=== PATIENT | female | born 1960 | race Native Hawaiian/Other Pacific Islander ===

== ENCOUNTER 2019-06-27 13:46 | Emergency (ER) | payer MEDICAID, OTHER ==
[~2019-06-27] VITALS: Ht 157.5 cm; Wt 59.9 kg
[2019-06-27 14:05] VITALS: BP 159/84
== END 2019-06-27 15:42 | disposition home or self-care (01) ==
LOC: ER 13:46
DX: L60.0 Ingrowing nail (principal); B37.3 Candidiasis of vulva and vagina; E11.9 Type 2 diabetes mellitus without complications; I10 Essential (primary) hypertension

== ENCOUNTER 2020-08-20 04:13 | Emergency (ER) | payer MEDICAID ==
[~2020-08-20] VITALS: Ht 157.5 cm; Wt 61.2 kg
[2020-08-20 05:01] VITALS: BP 174/77
[2020-08-20] MEDS ORDERED: HYDROcodone-ACET 5/325MG TAB PO ONE (05:15)
[2020-08-20] MEDS ORDERED: ONDANSETRON ODT 4 MG TAB PO ONE (05:15)
== END 2020-08-20 06:10 | disposition home or self-care (01) ==
LOC: ER 04:13
DX: S39.012A Strain of muscle, fascia and tendon of lower back, initial encounter (principal); M43.16 Spondylolisthesis, lumbar region; R03.0 Elevated blood-pressure reading, without diagnosis of hypertension; E11.9 Type 2 diabetes mellitus without complications; I10 Essential (primary) hypertension; X58.XXXA Exposure to other specified factors, initial encounter; Y93.89 Activity, other specified; Y92.89 Other specified places as the place of occurrence of the external cause; Y99.8 Other external cause status
CPT/HCPCS: 72100; 93005; 99283; Q0162

== ENCOUNTER 2022-06-06 17:20 | Emergency (ER) | payer MEDICAID ==
[~2022-06-06] VITALS: Ht 160 cm; Wt 66.0 kg
[2022-06-06 17:36] VITALS: BP 170/92
[2022-06-06] MEDS ORDERED: ACETAMINOPHEN 500 MG TAB PO ONE (17:45)
== END 2022-06-07 02:02 | disposition home or self-care (01) ==
LOC: ER 17:20
DX: S01.111A Laceration without foreign body of right eyelid and periocular area, initial encounter (principal); Z88.6 Allergy status to analgesic agent; W01.0XXA Fall on same level from slipping, tripping and stumbling without subsequent striking against object, initial encounter; Y93.89 Activity, other specified; Y92.89 Other specified places as the place of occurrence of the external cause; Y99.8 Other external cause status
CPT/HCPCS: 12011

== ENCOUNTER 2023-04-02 04:01 | Inpatient (IN) | payer MEDICARE, MEDICAID ==
[~2023-04-02] VITALS: Ht 160 cm; Wt 72.0 kg
[2023-04-02] MEDS ORDERED: SODIUM CHLORIDE 0.9% 1,000 ML IV ONE ×2 (05:00→07:15)
[2023-04-02 05:09] VITALS: PULSE 86; RESP 20; O2SAT 100
[2023-04-02 05:38] LABS: Alanine Aminotransferase 18 U/L (7-40); Albumin 4.6 g/dL (3.2-4.8); Alkaline Phosphatase 100 U/L (46-116); Anion Gap 8 (5-15); Aspartate Aminotransferase 12 U/L (13-40); BUN/Creatinine Ratio 12.5 (10.0-20.0); Bilirubin, Total 0.7 mg/dL (0.2-1.0); Blood Urea Nitrogen 12 mg/dL (9-23); Calcium 9.4 mg/dL (8.7-10.4); Carbon Dioxide 28 mmol/L (20-30); Chloride 100 mmol/L (98-107); Lipase 36 U/L (12-53); Sodium 136 mmol/L (136-145); Total Protein 7.4 g/dL (5.7-8.2)
[2023-04-02 05:49] LABS: Basophils # (auto) 0 10 ^3/uL (0-0.2); Basophils % (auto) 0.2 % (0.0-2.0); Eosinophils # (auto) 0.1 10 ^3/uL (0-0.8); Eosinophils % (auto) 1.5 % (0.0-7.0); Hematocrit 42.3 % (36.0-46.0); Hemoglobin 13.8 g/dL (12.2-16.2); Lymphocytes % (auto) 20.7 % (10.0-50.0); Mean Corpuscular Hemoglobin 28.2 pg (28.0-32.0); Mean Corpuscular Hgb Conc. 32.7 g/dL (32.0-36.0); Mean Corpuscular Volume 86.4 fL (80.0-100.0); Monocytes # (auto) 0 10 ^3/uL (0-1.3); Monocytes % (auto) 0.4 % (0.0-12.0); Neutrophils # (auto) 3.9 10 ^3/uL (1.6-8.6); Neutrophils % (auto) 77.2 % (37.0-80.0); Red Blood Cells 4.89 10^6/uL (4.0-5.20)
[2023-04-02 05:52] LABS: Glucose 478 mg/dL (74-106)
[2023-04-02] MEDS ORDERED: InsuLIN REG 1unit/0.01ml Soln (100units/ml) IV ONE (06:00)
[2023-04-02] MEDS ORDERED: ACETAMINOPHEN 325 MG TAB PO ONE ×2 (06:15→06:30)
[2023-04-02] MEDS ORDERED: SODIUM CHLORIDE 0.9% 1,000 ML IVB ONE (08:00)
[2023-04-02] MEDS ORDERED: IOHEXOL 300 MG/ML 100ML BOTTLE IJ ONE (08:07)
[2023-04-02 08:54] LABS: Urine Bacteria FEW /hpf (None Seen); Urine Blood Negative /uL (Negative); Urine Clarity Clear (Clear); Urine Protein, UAD Negative (Negative); Urine Specific Gravity 1.028 (1.001-1.035); Urine Urobilinogen Normal (Negative); Urine WBC 4 /hpf (0 - 5); Urine pH 6.5 (5.0-8.0)
[2023-04-02 08:56] LABS: Urine Color STRAW (Yellow)
[2023-04-02] MEDS ORDERED: NOREPINEPHRINE 8 MG/250ML KIT 250 ML IV SCH (14:30)
[2023-04-02] MEDS ORDERED: NITROGLYCERIN 0.4 MG SL TAB SL PRN (14:45)
[2023-04-02] MEDS ORDERED: TAMSULOSIN HYDROCHLORIDE 0.4 MG CAP PO ONE (14:45)
[2023-04-02] MEDS ORDERED: DEXTROSE (50%) 50ML SYRG IV PRN (14:45)
[2023-04-02] MEDS ORDERED: KETOROLAC TROMETH 30 MG/ML 1ML VIAL IV ONE (14:45)
[2023-04-02] MEDS ORDERED: PANTOPRAZOLE 40 MG/10 ML VIAL INJ IV ONE (14:45)
[2023-04-02] MEDS ORDERED: MORPHINE SULFATE INJ 2 MG/ml SYRG IV PRN (14:45)
[2023-04-02] MEDS ORDERED: cefTRIAXone 1GM/50ML D5W 50 ML IV ONE (15:00)
[2023-04-02] MEDS ORDERED: metroNIDAZOLE 500MG/100ML 100 ML IV ONE (15:00)
[2023-04-02] MEDS ORDERED: CARV12.544 PO (15:03)
[2023-04-02] MEDS ORDERED: ROSU1TAB12 PO (15:03)
[2023-04-02] MEDS ORDERED: MECL25CH20 PO (15:03)
[2023-04-02] MEDS ORDERED: METF-1145 PO (15:03)
[2023-04-02] MEDS ORDERED: CLOB0.05 TOP (15:03)
[2023-04-02] MEDS ORDERED: BENZ200C64 PO (15:03)
[2023-04-02] MEDS ORDERED: LORA-483 PO (15:03)
[2023-04-02] MEDS ORDERED: ASPI-325 PO (15:03)
[2023-04-02] MEDS: VASOPRESSIN 20 UNITS in SODIUM CHL 0.9% 99 ML IV SCH (16:00)
[2023-04-02] MEDS: SODIUM CHLORIDE 0.9% 1,000 ML IV SCH ×2 (16:46→23:09)
[2023-04-02] MEDS: metroNIDAZOLE 500MG/100ML 100 ML IV SCH ×2 (16:52→23:02)
[2023-04-02] MEDS: ACCU-CHEK COMFORT CURVE STRIP VI SCH ×2 (17:08→22:59)
[2023-04-02] MEDS: InsuLIN REG 1unit/0.01ml Soln (100units/ml) SC SCH ×2 (17:43→22:59)
[2023-04-02 19:04] LABS: Lactic Acid w/Reflex 3.1 mmol/L (0.4-2.0)
[2023-04-02 19:15] VITALS: PULSE 93; RESP 20; O2SAT 97
[2023-04-02] MEDS: TAMSULOSIN HYDROCHLORIDE 0.4 MG CAP PO SCH (20:04)
[2023-04-02] MEDS: ATORVASTATIN 20 MG TAB PO SCH (22:59)
[2023-04-03] MEDS: ONDANSETRON HCL 4 MG/2 ML VIAL IV PRN (00:34)
[2023-04-03 01:24] LABS: Lactic Acid w/Reflex 5.6 mmol/L (0.4-2.0)
[2023-04-03] MEDS: VASOPRESSIN 20 UNITS in SODIUM CHL 0.9% 99 ML IV SCH (02:31)
[2023-04-03 06:22] LABS: Alanine Aminotransferase 22 U/L (7-40); Alkaline Phosphatase 72 U/L (46-116); Anion Gap 12 (5-15); BUN/Creatinine Ratio 10.3 (10.0-20.0); Blood Urea Nitrogen 9 mg/dL (9-23); Calcium 7.2 mg/dL (8.5-10.1); Carbon Dioxide 16 mmol/L (20-30); Glucose 246 mg/dL (74-106); Potassium 3.9 mmol/L (3.5-5.1); Sodium 141 mmol/L (136-145)
[2023-04-03 06:23] LABS: Albumin 2.8 g/dL (3.2-4.8); Aspartate Aminotransferase 30 U/L (13-40)
[2023-04-03 06:24] LABS: Bilirubin, Total 0.5 mg/dL (0.2-1.0); Total Protein 4.8 g/dL (5.7-8.2)
[2023-04-03 06:26] LABS: Chloride 113 mmol/L (98-107)
[2023-04-03] MEDS: ACCU-CHEK COMFORT CURVE STRIP VI SCH ×4 (06:26→21:21)
[2023-04-03] MEDS: PIPERACILLIN-TAZOB 3.375GM 100 ML IV SCH ×3 (06:26→23:08)
[2023-04-03] MEDS: SODIUM CHLORIDE 0.9% 1,000 ML IV SCH ×2 (06:27→15:54)
[2023-04-03] MEDS: InsuLIN REG 1unit/0.01ml Soln (100units/ml) SC SCH ×4 (06:30→21:30)
[2023-04-03] MEDS: metroNIDAZOLE 500MG/100ML 100 ML IV SCH ×3 (06:44→21:32)
[2023-04-03 07:04] LABS: Lactic Acid w/Reflex 3.2 mmol/L (0.4-2.0)
[2023-04-03 07:59] LABS: Basophils # (auto) 0 10 ^3/uL (0-0.2); Basophils % (auto) 0.2 % (0.0-2.0); Eosinophils # (auto) 0 10 ^3/uL (0-0.8); Eosinophils % (auto) 0.3 % (0.0-7.0); Hematocrit 36.2 % (36.0-46.0); Hemoglobin 11.1 g/dL (12.2-16.2); Lymphocytes # (auto) 0.7 10 ^3/uL (0.4-5.4); Lymphocytes % (auto) 5.6 % (10.0-50.0); Mean Corpuscular Hemoglobin 27.8 pg (28.0-32.0); Mean Corpuscular Hgb Conc. 30.6 g/dL (32.0-36.0); Mean Corpuscular Volume 90.8 fL (80.0-100.0); Monocytes # (auto) 0.7 10 ^3/uL (0-1.3); Neutrophils # (auto) 11.5 10 ^3/uL (1.6-8.6); Neutrophils % (auto) 88.9 % (37.0-80.0); Nucleated Red Blood Cells % 0.1 %; Red Blood Cells 3.99 10^6/uL (4.0-5.20); Red Cell Distribution Width 13.8 % (11.8-14.3)
[2023-04-03] MEDS ORDERED: cefTRIAXone 1GM/50ML D5W 50 ML IV SCH (09:00)
[2023-04-03] MEDS: ACETAMINOPHEN 325 MG TAB PO PRN ×2 (09:15→21:31)
[2023-04-03] MEDS ORDERED: ENOXAPARIN SOD 40 MG/0.4 ML SYRINGE SC SCH (10:00)
[2023-04-03] MEDS: PANTOPRAZOLE 40 MG/10 ML VIAL INJ IV SCH (11:02)
[2023-04-03] MEDS: ASPirin-EC 81 mg tab PO SCH (11:02)
[2023-04-03 11:44] VITALS: PULSE 92; RESP 20; O2SAT 96
[2023-04-03 12:48] VITALS: PULSE 92; RESP 20; O2SAT 96
[2023-04-03 13:41] LABS: Lactic Acid w/Reflex 2.2 mmol/L (0.4-2.0)
[2023-04-03 13:52] VITALS: BP 114/65; PULSE 104; RESP 18; TEMP 97.2; O2SAT 100
[2023-04-03] MEDS: TAMSULOSIN HYDROCHLORIDE 0.4 MG CAP PO SCH (18:01)
[2023-04-03 18:57] LABS: Lactic Acid w/Reflex 2.4 mmol/L (0.4-2.0)
[2023-04-03 20:00] VITALS: PULSE 102; O2SAT 94
[2023-04-03] MEDS: ATORVASTATIN 20 MG TAB PO SCH (21:30)
[2023-04-03 22:32] VITALS: TEMP 98.9
[2023-04-04] VITALS (8 sets, daily range): BP systolic 105–133; BP diastolic 58–74; PULSE 94–101; RESP 16–22; TEMP 98.2–99; O2SAT 90–95
[2023-04-04] MEDS: SODIUM CHLORIDE 0.9% 1,000 ML IV SCH ×3 (00:05→11:15)
[2023-04-04] MEDS: metroNIDAZOLE 500MG/100ML 100 ML IV SCH ×3 (05:54→21:28)
[2023-04-04] MEDS: ACCU-CHEK COMFORT CURVE STRIP VI SCH ×4 (06:50→21:27)
[2023-04-04] MEDS: PIPERACILLIN-TAZOB 3.375GM 100 ML IV SCH ×3 (06:51→22:46)
[2023-04-04] MEDS: InsuLIN REG 1unit/0.01ml Soln (100units/ml) SC SCH ×4 (06:58→21:36)
[2023-04-04] MEDS: ONDANSETRON HCL 4 MG/2 ML VIAL IV PRN (06:59)
[2023-04-04 07:16] LABS: Hematocrit 34.5 % (36.0-46.0); Hemoglobin 11.2 g/dL (12.2-16.2); Mean Corpuscular Hemoglobin 27.9 pg (28.0-32.0); Mean Corpuscular Hgb Conc. 32.4 g/dL (32.0-36.0); Mean Corpuscular Volume 86.1 fL (80.0-100.0); Red Cell Distribution Width 13.7 % (11.8-14.3); White Blood Cell 14.4 10^3/uL (4.4-10.8)
[2023-04-04 07:21] LABS: Basophils % (manual) 0 (0.0-2.0); Blast Cells 0; Eosinophils % (manual) 0 (0-7); Metamyelocytes % 0; Myelocytes % 0; Promyelocytes % 0; Reactive Lymphocytes 0
[2023-04-04 07:53] LABS: Band Neutrophils % (manual) 7; Lymphocytes % (manual) 6 (10.0-50.0); Monocytes % (manual) 8 (0-12); Platelet Estimate Decreased
[2023-04-04] MEDS: ASPirin-EC 81 mg tab PO SCH (10:13)
[2023-04-04] MEDS: PANTOPRAZOLE 40 MG/10 ML VIAL INJ IV SCH (10:13)
[2023-04-04] MEDS ORDERED: MANNITOL FTV 25% 12.5 GM/50 ML 50 ML IV ONE (11:00)
[2023-04-04] MEDS: TAMSULOSIN HYDROCHLORIDE 0.4 MG CAP PO SCH (18:26)
[2023-04-04] MEDS: ATORVASTATIN 20 MG TAB PO SCH (21:27)
[2023-04-05] VITALS (7 sets, daily range): BP systolic 113–146; BP diastolic 61–78; PULSE 73–86; RESP 16–20; TEMP 97.8–98.6; O2SAT 94–99
[2023-04-05] MEDS: SODIUM CHLORIDE 0.9% 1,000 ML IV SCH (02:27)
[2023-04-05] MEDS: metroNIDAZOLE 500MG/100ML 100 ML IV SCH (06:05)
[2023-04-05] MEDS: ACCU-CHEK COMFORT CURVE STRIP VI SCH ×4 (06:05→21:30)
[2023-04-05] MEDS: InsuLIN REG 1unit/0.01ml Soln (100units/ml) SC SCH ×4 (06:21→21:34)
[2023-04-05] MEDS: PIPERACILLIN-TAZOB 3.375GM 100 ML IV SCH (06:52)
[2023-04-05 08:43] LABS: Basophils # (auto) 0.1 10 ^3/uL (0-0.2); Basophils % (auto) 0.5 % (0.0-2.0); Eosinophils # (auto) 0.1 10 ^3/uL (0-0.8); Eosinophils % (auto) 0.8 % (0.0-7.0); Hematocrit 34.5 % (36.0-46.0); Hemoglobin 11.2 g/dL (12.2-16.2); Lymphocytes # (auto) 1.4 10 ^3/uL (0.4-5.4); Lymphocytes % (auto) 9.4 % (10.0-50.0); Mean Corpuscular Hemoglobin 27.3 pg (28.0-32.0); Mean Corpuscular Hgb Conc. 32.4 g/dL (32.0-36.0); Mean Corpuscular Volume 84.2 fL (80.0-100.0); Monocytes # (auto) 0.6 10 ^3/uL (0-1.3); Monocytes % (auto) 4.4 % (0.0-12.0); Neutrophils # (auto) 12.3 10 ^3/uL (1.6-8.6); Neutrophils % (auto) 84.9 % (37.0-80.0); Red Cell Distribution Width 13.5 % (11.8-14.3); White Blood Cell 14.4 10^3/uL (4.4-10.8)
[2023-04-05 08:54] LABS: Chloride 110 mmol/L (98-107); Sodium 142 mmol/L (136-145)
[2023-04-05 08:55] LABS: Anion Gap 8 (5-15); Calcium 7.9 mg/dL (8.5-10.1); Carbon Dioxide 24 mmol/L (20-30)
[2023-04-05 09:00] LABS: BUN/Creatinine Ratio 8.4 (10.0-20.0); Blood Urea Nitrogen 7 mg/dL (9-23); Glucose 189 mg/dL (74-106)
[2023-04-05 09:10] LABS: Potassium 2.2 mmol/L (3.5-5.1)
[2023-04-05] MEDS: ASPirin-EC 81 mg tab PO SCH (09:59)
[2023-04-05] MEDS: PANTOPRAZOLE 40 MG/10 ML VIAL INJ IV SCH (09:59)
[2023-04-05] MEDS: cefTRIAXone 1GM/50ML D5W 50 ML IV SCH (13:56)
[2023-04-05] MEDS ORDERED: POTASSIUM EFFERVESENT TAB 25 MEQ PO ONE (15:45)
[2023-04-05] MEDS ORDERED: POTASSIUM CHLORIDE 60 MEQ, LIDOCAINE 1% (LOCAL ANESTH.) 6 ML in SODIUM CHL 0.9% 500 ML IV ONE (15:45)
[2023-04-05] MEDS: TAMSULOSIN HYDROCHLORIDE 0.4 MG CAP PO SCH (18:50)
[2023-04-05] MEDS: ACETAMINOPHEN 325 MG TAB PO PRN (19:04)
[2023-04-05] MEDS: ATORVASTATIN 20 MG TAB PO SCH (21:30)
[2023-04-06] MEDS: POTASSIUM CHLORIDE 40 MEQ in SOD CHL 0.45% 1,000 ML IV SCH ×3 (01:00→17:55)
[2023-04-06 05:00] VITALS: BP 141/59; PULSE 20; RESP 98; TEMP 97.7; O2SAT 98
[2023-04-06] MEDS: ACCU-CHEK COMFORT CURVE STRIP VI SCH ×4 (06:15→21:23)
[2023-04-06] MEDS: InsuLIN REG 1unit/0.01ml Soln (100units/ml) SC SCH ×4 (06:17→21:30)
[2023-04-06 07:30] LABS: Hematocrit 34.9 % (36.0-46.0); Hemoglobin 11.6 g/dL (12.2-16.2); Mean Corpuscular Hemoglobin 27.8 pg (28.0-32.0); Mean Corpuscular Hgb Conc. 33.2 g/dL (32.0-36.0); Mean Corpuscular Volume 83.8 fL (80.0-100.0); Red Blood Cells 4.16 10^6/uL (4.0-5.20); Red Cell Distribution Width 13.2 % (11.8-14.3); White Blood Cell 10.2 10^3/uL (4.4-10.8)
[2023-04-06 07:33] LABS: Alanine Aminotransferase 14 U/L (7-40); Alkaline Phosphatase 161 U/L (46-116); Anion Gap 8 (5-15); Calcium 7.7 mg/dL (8.7-10.4); Carbon Dioxide 25 mmol/L (20-30); Chloride 109 mmol/L (98-107); Glucose 156 mg/dL (74-106); Magnesium 1.6 mg/dL (1.6-2.6); Potassium 2.9 mmol/L (3.5-5.1); Sodium 142 mmol/L (136-145)
[2023-04-06 07:34] LABS: Aspartate Aminotransferase 21 U/L (13-40); Bilirubin, Total 0.5 mg/dL (0.2-1.0); Total Protein 5.1 g/dL (5.7-8.2)
[2023-04-06 07:36] LABS: BUN/Creatinine Ratio 7.6 (10.0-20.0); Blood Urea Nitrogen < 5 mg/dL (9-23)
[2023-04-06 07:55] LABS: Band Neutrophils % (manual) 0; Basophils % (manual) 0 (0.0-2.0); Blast Cells 0; Metamyelocytes % 0; Promyelocytes % 0; Reactive Lymphocytes 0
[2023-04-06 08:00] VITALS: PULSE 87
[2023-04-06] MEDS: cefTRIAXone 1GM/50ML D5W 50 ML IV SCH (09:00)
[2023-04-06] MEDS: ASPirin-EC 81 mg tab PO SCH (09:05)
[2023-04-06] MEDS: PANTOPRAZOLE 40 MG/10 ML VIAL INJ IV SCH (09:06)
[2023-04-06] MEDS ORDERED: MAGNESIUM SULFATE 1GM/100ML 100 ML IV ONE (09:15)
[2023-04-06] MEDS ORDERED: POTASSIUM EFFERVESENT TAB 25 MEQ PO ONE (09:15)
[2023-04-06] MEDS: FLORASTOR (S. BOULARDII) 250 MG CAP PO SCH (10:15)
[2023-04-06 12:17] LABS: Eosinophils % (manual) 6 (0-7); Lymphocytes % (manual) 10 (10.0-50.0); Monocytes % (manual) 9 (0-12); Myelocytes % 1
[2023-04-06 12:18] LABS: Platelet Estimate Decreased
[2023-04-06 13:00] VITALS: BP 148/78; PULSE 79; RESP 16; TEMP 97.7; O2SAT 97
[2023-04-06 17:07] VITALS: BP 144/83; PULSE 99; RESP 16; TEMP 98.9; O2SAT 98
[2023-04-06] MEDS: TAMSULOSIN HYDROCHLORIDE 0.4 MG CAP PO SCH (17:29)
[2023-04-06 20:00] VITALS: PULSE 91
[2023-04-06] MEDS: ATORVASTATIN 20 MG TAB PO SCH (21:23)
[2023-04-07] MEDS: POTASSIUM CHLORIDE 40 MEQ in SOD CHL 0.45% 1,000 ML IV SCH (04:36)
[2023-04-07 04:37] VITALS: BP 145/70; PULSE 88; RESP 16; TEMP 97.5; O2SAT 98
[2023-04-07] MEDS: ACCU-CHEK COMFORT CURVE STRIP VI SCH ×4 (06:31→22:12)
[2023-04-07] MEDS: InsuLIN REG 1unit/0.01ml Soln (100units/ml) SC SCH ×4 (06:38→22:20)
[2023-04-07 07:12] LABS: Chloride 104 mmol/L (98-107); Sodium 138 mmol/L (136-145)
[2023-04-07 07:13] LABS: Anion Gap 9 (5-15); Calcium 8.6 mg/dL (8.5-10.1); Carbon Dioxide 25 mmol/L (20-30)
[2023-04-07 07:18] LABS: Glucose 210 mg/dL (74-106)
[2023-04-07 07:23] LABS: Blood Urea Nitrogen < 5 mg/dL (9-23)
[2023-04-07 07:35] LABS: Magnesium 1.8 mg/dL (1.6-2.6)
[2023-04-07 08:00] VITALS: PULSE 85
[2023-04-07 09:00] VITALS: BP 145/78; PULSE 92; RESP 16; TEMP 98.6; O2SAT 94
[2023-04-07] MEDS: PANTOPRAZOLE 40 MG/10 ML VIAL INJ IV SCH (10:55)
[2023-04-07] MEDS: cefTRIAXone 1GM/50ML D5W 50 ML IV SCH (10:55)
[2023-04-07] MEDS: FLORASTOR (S. BOULARDII) 250 MG CAP PO SCH (10:55)
[2023-04-07] MEDS: ASPirin-EC 81 mg tab PO SCH (10:55)
[2023-04-07] MEDS ORDERED: POTASSIUM EFFERVESENT TAB 25 MEQ PO ONE (12:00)
[2023-04-07 13:00] VITALS: BP 143/83; PULSE 86; RESP 20; TEMP 98.6; O2SAT 94
[2023-04-07 16:51] VITALS: BP 131/72; PULSE 89; RESP 18; TEMP 98.6; O2SAT 96
[2023-04-07] MEDS: TAMSULOSIN HYDROCHLORIDE 0.4 MG CAP PO SCH (18:09)
[2023-04-07 20:00] VITALS: BP 141/81; PULSE 98; RESP 17; TEMP 100; O2SAT 91
[2023-04-07] MEDS: ATORVASTATIN 20 MG TAB PO SCH (22:11)
[2023-04-07] MEDS: ACETAMINOPHEN 325 MG TAB PO PRN (22:19)
[2023-04-08 05:00] VITALS: BP 137/77; PULSE 78; RESP 18; TEMP 98.7; O2SAT 96
[2023-04-08] MEDS: ACCU-CHEK COMFORT CURVE STRIP VI SCH ×3 (05:44→17:00)
[2023-04-08] MEDS: InsuLIN REG 1unit/0.01ml Soln (100units/ml) SC SCH ×3 (05:48→17:00)
[2023-04-08 06:20] LABS: Hematocrit 36.9 % (36.0-46.0); Hemoglobin 12.2 g/dL (12.2-16.2); Mean Corpuscular Hemoglobin 27.6 pg (28.0-32.0); Mean Corpuscular Volume 83.7 fL (80.0-100.0); Red Blood Cells 4.41 10^6/uL (4.0-5.20); Red Cell Distribution Width 13.4 % (11.8-14.3); White Blood Cell 12.5 10^3/uL (4.4-10.8)
[2023-04-08 06:30] LABS: Basophils % (manual) 0 (0.0-2.0); Myelocytes % 0; Promyelocytes % 0; Reactive Lymphocytes 0
[2023-04-08 06:54] LABS: Alanine Aminotransferase 31 U/L (7-40); Albumin 3.5 g/dL (3.2-4.8); Alkaline Phosphatase 189 U/L (46-116); Anion Gap 7 (5-15); Aspartate Aminotransferase 42 U/L (13-40); Calcium 8.2 mg/dL (8.7-10.4); Carbon Dioxide 27 mmol/L (20-30); Chloride 104 mmol/L (98-107); Glucose 182 mg/dL (74-106); Potassium 3.2 mmol/L (3.5-5.1); Sodium 138 mmol/L (136-145)
[2023-04-08 06:55] LABS: Bilirubin, Total 0.5 mg/dL (0.2-1.0); Total Protein 6.1 g/dL (5.7-8.2)
[2023-04-08 06:57] LABS: BUN/Creatinine Ratio 7.2 (10.0-20.0); Blood Urea Nitrogen < 5 mg/dL (9-23)
[2023-04-08 08:00] VITALS: BP 141/81; PULSE 98; RESP 17; TEMP 100; O2SAT 91
[2023-04-08 09:00] VITALS: BP 141/71; PULSE 103; RESP 20; TEMP 98.1; O2SAT 97
[2023-04-08] MEDS ORDERED: POTASSIUM EFFERVESENT TAB 25 MEQ PO ONE (09:15)
[2023-04-08 09:19] LABS: Band Neutrophils % (manual) 7; Blast Cells 1; Eosinophils % (manual) 3 (0-7); Lymphocytes % (manual) 21 (10.0-50.0); Metamyelocytes % 5; Monocytes % (manual) 8 (0-12); Platelet Estimate Adequate
[2023-04-08] MEDS: cefTRIAXone 1GM/50ML D5W 50 ML IV SCH (09:51)
[2023-04-08] MEDS: FLORASTOR (S. BOULARDII) 250 MG CAP PO SCH (09:52)
[2023-04-08] MEDS: ASPirin-EC 81 mg tab PO SCH (09:52)
[2023-04-08 13:00] VITALS: BP 144/61; PULSE 105; RESP 19; TEMP 98; O2SAT 97
[2023-04-08] MEDS ORDERED: CEFD300C2 PO (14:24)
[2023-04-08] MEDS ORDERED: BLOO1KIT60 XX (14:24)
[2023-04-08] MEDS ORDERED: VALA1TAB34 PO (14:24)
[2023-04-08 16:26] VITALS: TEMP 36.7
[2023-04-08 16:36] VITALS: BP 136/73; PULSE 88; RESP 18; TEMP 98.9; O2SAT 96
[2023-04-08] MEDS: TAMSULOSIN HYDROCHLORIDE 0.4 MG CAP PO SCH (18:00)
== END 2023-04-08 18:03 | disposition home or self-care (01) | DRG 872 ==
LOC: ER 04:01 → TELE 14:48 → TELE-WESTW 04-03 12:40 → WEST WING 04-08 02:37
PROVIDERS: ADMIT Nurse Practitioner Family; ATTEND Nurse Practitioner Acute Care
DX: A41.51 Sepsis due to Escherichia coli [E. coli] (principal); N13.6 Pyonephrosis; E78.5 Hyperlipidemia, unspecified; E87.6 Hypokalemia; I10 Essential (primary) hypertension; E11.9 Type 2 diabetes mellitus without complications; Z88.5 Allergy status to narcotic agent; Z79.84 Long term (current) use of oral hypoglycemic drugs; Z83.3 Family history of diabetes mellitus; Z87.442 Personal history of urinary calculi
CPT/HCPCS: 36415; 36600; 70450; 71045; 74177; 76775; 80048; 80053; 81001; 82805; 82962; 83036; 83605; 83690; 83735; 84484; 85007; 85025; 85027; 87040; 87077; 87086; 87186; 87493; 93005; 96365; 96367; 96375; C9113; G0378; J0696; J1815; J1885; J2001; J2405; J2543; J3490

== ENCOUNTER 2023-07-16 17:19 | Emergency (ER) | payer MEDICARE, MEDICAID ==
[~2023-07-16] VITALS: Ht 157.5 cm; Wt 55.7 kg
[~2023-07-16 17:19] MED LIST: ASPI-325 PO; BENZ200C64 PO; BLOO1KIT60 XX; CARV12.544 PO; CEFD300C2 PO; CLOB0.05 TOP; LORA-483 PO; MECL25CH20 PO; METF-1145 PO; ROSU1TAB12 PO; VALA1TAB34 PO
[2023-07-16 19:05] LABS: Basophils # (auto) 0 10 ^3/uL (0-0.2); Basophils % (auto) 0.4 % (0.0-2.0); Eosinophils # (auto) 0.3 10 ^3/uL (0-0.8); Eosinophils % (auto) 2.5 % (0.0-7.0); Hematocrit 42.6 % (36.0-46.0); Hemoglobin 13.9 g/dL (12.2-16.2); Lymphocytes % (auto) 28.1 % (10.0-50.0); Mean Corpuscular Hemoglobin 27.4 pg (28.0-32.0); Mean Corpuscular Hgb Conc. 32.7 g/dL (32.0-36.0); Mean Corpuscular Volume 83.7 fL (80.0-100.0); Monocytes # (auto) 0.5 10 ^3/uL (0-1.3); Monocytes % (auto) 4.9 % (0.0-12.0); Neutrophils # (auto) 6.9 10 ^3/uL (1.6-8.6); Neutrophils % (auto) 64.1 % (37.0-80.0); Red Blood Cells 5.09 10^6/uL (4.0-5.20); Red Cell Distribution Width 13.2 % (11.8-14.3); White Blood Cell 10.8 10^3/uL (4.4-10.8)
[2023-07-16 19:17] LABS: Alanine Aminotransferase 14 U/L (7-40); Albumin 4.9 g/dL (3.2-4.8); Alkaline Phosphatase 73 U/L (46-116); Anion Gap 9 (5-15); Aspartate Aminotransferase 13 U/L (13-40); BUN/Creatinine Ratio 16.9 (10.0-20.0); Blood Urea Nitrogen 14 mg/dL (9-23); Calcium 9.8 mg/dL (8.7-10.4); Carbon Dioxide 25 mmol/L (20-30); Chloride 106 mmol/L (98-107); Glucose 164 mg/dL (74-106); Potassium 3.8 mmol/L (3.5-5.1); Sodium 140 mmol/L (136-145)
[2023-07-16 19:18] LABS: Bilirubin, Total 0.4 mg/dL (0.2-1.0); Total Protein 7.8 g/dL (5.7-8.2)
[2023-07-16] MEDS ORDERED: FAMO20TA10 PO (22:13)
[2023-07-16] MEDS ORDERED: HYDR-4902 PO (22:13)
[2023-07-16] MEDS ORDERED: ZOFR4T PO (22:13)
[2023-07-16] MEDS ORDERED: CEPH500C PO (22:13)
[2023-07-16] MEDS: FAMOTIDINE (10MG/ML) 2ML VL IV ONE (22:15)
[2023-07-16] MEDS ORDERED: MORPHINE SULFATE 4 MG/ML SYR/VIAL IV ONE (22:15)
[2023-07-16 22:51] LABS: Urine Bacteria NONE SEEN /hpf (None Seen); Urine Blood Negative /uL (Negative); Urine Clarity Clear (Clear); Urine Color Colorless (Yellow); Urine Protein, UAD 1+ (Negative); Urine Specific Gravity 1.029 (1.001-1.035); Urine Urobilinogen Normal (Negative); Urine WBC 1 /hpf (0 - 5); Urine pH 5.5 (5.0-8.0)
[2023-07-16 22:55] VITALS: BP 129/78; PULSE 85; RESP 18; TEMP 97.9; O2SAT 99
[2023-07-16] MEDS: SODIUM CHLORIDE 0.9% 1,000 ML IV ONE (22:57)
[2023-07-16] MEDS: HYDROcodone-ACET 5/325MG TAB PO ONE (22:58)
[2023-07-16] MEDS: ONDANSETRON HCL 4 MG/2 ML VIAL IV ONE (23:18)
== END 2023-07-16 23:41 | disposition home or self-care (01) ==
LOC: ER 17:19
DX: K80.20 Calculus of gallbladder without cholecystitis without obstruction (principal); N20.0 Calculus of kidney; I10 Essential (primary) hypertension; E11.9 Type 2 diabetes mellitus without complications; E78.5 Hyperlipidemia, unspecified; Z79.82 Long term (current) use of aspirin; Z79.899 Other long term (current) drug therapy; Z88.5 Allergy status to narcotic agent
CPT/HCPCS: 36415; 74176; 80053; 81001; 83690; 85025; 96361; 96374; 99285; J2405; J3490; J7030

== ENCOUNTER 2023-09-18 17:59 | Emergency (ER) | payer MEDICARE, MEDICAID ==
[~2023-09-18] VITALS: Ht 157.5 cm; Wt 53.8 kg
[~2023-09-18 17:59] MED LIST changes: -BENZ200C64 PO; -CEFD300C2 PO; +CEPH250C PO; -CLOB0.05 TOP; -MECL25CH20 PO; -ROSU1TAB12 PO; +ROSU5TAB24 PO; -VALA1TAB34 PO
[2023-09-18 19:18] LABS: Urine Bacteria None Seen /hpf (None Seen)
[2023-09-18 19:25] LABS: Urine Blood TRACE /uL (Negative); Urine Clarity Clear (Clear); Urine Color Light-Yellow (Yellow); Urine Mucus FEW (None Seen); Urine Protein, UAD 1+ (Negative); Urine Specific Gravity 1.035 (1.001-1.035); Urine Urobilinogen Normal (Negative); Urine WBC 9 /hpf (0 - 5)
[2023-09-18 19:39] LABS: Basophils # (auto) 0 10 ^3/uL (0-0.2); Basophils % (auto) 0.6 % (0.0-2.0); Eosinophils # (auto) 0.2 10 ^3/uL (0-0.8); Eosinophils % (auto) 2.8 % (0.0-7.0); Hematocrit 40.8 % (36.0-46.0); Hemoglobin 13.3 g/dL (12.2-16.2); Lymphocytes # (auto) 3.1 10 ^3/uL (0.4-5.4); Lymphocytes % (auto) 39.9 % (10.0-50.0); Mean Corpuscular Hemoglobin 27.2 pg (28.0-32.0); Mean Corpuscular Hgb Conc. 32.6 g/dL (32.0-36.0); Mean Corpuscular Volume 83.3 fL (80.0-100.0); Monocytes # (auto) 0.4 10 ^3/uL (0-1.3); Monocytes % (auto) 5.8 % (0.0-12.0); Neutrophils # (auto) 3.9 10 ^3/uL (1.6-8.6); Neutrophils % (auto) 50.9 % (37.0-80.0); Red Cell Distribution Width 12.8 % (11.8-14.3); White Blood Cell 7.7 10^3/uL (4.4-10.8)
[2023-09-18] MEDS: IBUPROFEN 600 MG TAB PO ONE (19:44)
[2023-09-18 19:49] LABS: Chloride 104 mmol/L (98-107); Potassium 3.4 mmol/L (3.5-5.1); Sodium 137 mmol/L (136-145)
[2023-09-18 19:50] LABS: Anion Gap 6 (5-15); Carbon Dioxide 27 mmol/L (20-30)
[2023-09-18 19:55] LABS: Glucose 267 mg/dL (74-106)
[2023-09-18 19:56] LABS: BUN/Creatinine Ratio 5.9 (10.0-20.0); Blood Urea Nitrogen 6 mg/dL (9-23)
[2023-09-18 20:10] VITALS: BP 148/74; PULSE 82; RESP 20; TEMP 98.1; O2SAT 99
== END 2023-09-18 21:54 | disposition home or self-care (01) ==
LOC: ER 17:59
DX: R10.9 Unspecified abdominal pain (principal); E11.9 Type 2 diabetes mellitus without complications; I10 Essential (primary) hypertension; E78.5 Hyperlipidemia, unspecified; K80.20 Calculus of gallbladder without cholecystitis without obstruction; Z88.8 Allergy status to other drugs, medicaments and biological substances; Z87.442 Personal history of urinary calculi
CPT/HCPCS: 36415; 74176; 80048; 81001; 85025

== ENCOUNTER 2023-10-24 14:28 | Inpatient (IN) | payer MEDICARE, MEDICAID ==
[~2023-10-24] VITALS: Ht 157.5 cm; Wt 54.9 kg
[2023-10-24 16:00] LABS: Basophils # (auto) 0 10 ^3/uL (0-0.2); Basophils % (auto) 0.1 % (0.0-2.0); Eosinophils # (auto) 0.2 10 ^3/uL (0-0.8); Eosinophils % (auto) 1.7 % (0.0-7.0); Hematocrit 45.1 % (36.0-46.0); Hemoglobin 15.1 g/dL (12.2-16.2); Lymphocytes # (auto) 1.3 10 ^3/uL (0.4-5.4); Lymphocytes % (auto) 14.1 % (10.0-50.0); Mean Corpuscular Hemoglobin 28.5 pg (28.0-32.0); Mean Corpuscular Hgb Conc. 33.5 g/dL (32.0-36.0); Mean Corpuscular Volume 85.1 fL (80.0-100.0); Monocytes # (auto) 0.4 10 ^3/uL (0-1.3); Monocytes % (auto) 4.4 % (0.0-12.0); Neutrophils # (auto) 7.1 10 ^3/uL (1.6-8.6); Neutrophils % (auto) 79.7 % (37.0-80.0); Nucleated Red Blood Cells % 0.1 %; Red Cell Distribution Width 13.5 % (11.8-14.3)
[2023-10-24 16:25] LABS: Alanine Aminotransferase 28 U/L (7-40); Albumin 5.1 g/dL (3.2-4.8); Alkaline Phosphatase 78 U/L (46-116); Anion Gap 12 (5-15); Aspartate Aminotransferase 15 U/L (13-40); BUN/Creatinine Ratio 10.7 (10.0-20.0); Bilirubin, Total 0.9 mg/dL (0.2-1.0); Blood Urea Nitrogen 13 mg/dL (9-23); Calcium 10.6 mg/dL (8.5-10.1); Carbon Dioxide 23 mmol/L (20-30); Chloride 103 mmol/L (98-107); Glucose 180 mg/dL (74-106); Potassium 3.9 mmol/L (3.5-5.1); Sodium 138 mmol/L (136-145); Total Protein 8.1 g/dL (5.7-8.2)
[2023-10-24 17:22] LABS: Urine Bacteria None Seen /hpf (None Seen)
[2023-10-24 17:51] LABS: Urine Blood 2+ /uL (Negative); Urine Clarity Clear (Clear); Urine Color Light-Yellow (Yellow); Urine Protein, UAD 1+ (Negative); Urine Specific Gravity 1.037 (1.001-1.035); Urine Urobilinogen Normal (Negative); Urine WBC 80 /hpf (0 - 5)
[2023-10-24] MEDS ORDERED: DOCUSATE SOD 100 MG CAP PO PRN (22:00)
[2023-10-24] MEDS ORDERED: NITROGLYCERIN 0.4 MG SL TAB SL PRN (22:00)
[2023-10-24] MEDS ORDERED: MORPHINE SULFATE INJ 2 MG/ml SYRG IV PRN ×2 (22:00)
[2023-10-24] MEDS ORDERED: ACETAMINOPHEN 325 MG TAB PO PRN (22:00)
[2023-10-24] MEDS ORDERED: HYDROcodone-ACET 5/325MG TAB PO PRN (22:00)
[2023-10-24] MEDS ORDERED: DEXTROSE (50%) 50ML SYRG IV PRN (22:00)
[2023-10-24] MEDS ORDERED: ONDANSETRON HCL 4 MG/2 ML VIAL IV PRN (22:00)
[2023-10-24] MEDS ORDERED: EMPA1TAB3 PO (22:59)
[2023-10-25] VITALS (10 sets, daily range): BP systolic 105–145; BP diastolic 56–79; PULSE 76–98; RESP 14–20; TEMP 97.7–98.2; O2SAT 94–100
[2023-10-25] MEDS: SODIUM CHLORIDE 0.9% 1,000 ML IV ONE ×2 (00:29→01:48)
[2023-10-25] MEDS: ACCU-CHEK COMFORT CURVE STRIP VI SCH (00:29)
[2023-10-25] MEDS: InsuLIN REG 1unit/0.01ml Soln (100units/ml) SC SCH (00:29)
[2023-10-25] MEDS: levoFLOXacin 500MG 100 ML IV ONE (00:50)
[2023-10-25 06:14] LABS: Alanine Aminotransferase 19 U/L (7-40); Albumin 4.2 g/dL (3.2-4.8); Alkaline Phosphatase 65 U/L (46-116); Anion Gap 12 (5-15); Aspartate Aminotransferase 8 U/L (13-40); BUN/Creatinine Ratio 12.4 (10.0-20.0); Blood Urea Nitrogen 11 mg/dL (9-23); Calcium 9.4 mg/dL (8.5-10.1); Carbon Dioxide 19 mmol/L (20-30); Chloride 107 mmol/L (98-107); Glucose 95 mg/dL (74-106); Potassium 3.8 mmol/L (3.5-5.1); Sodium 138 mmol/L (136-145)
[2023-10-25 06:15] LABS: Bilirubin, Total 0.7 mg/dL (0.2-1.0); Total Protein 6.7 g/dL (5.7-8.2)
[2023-10-25 06:21] LABS: Basophils # (auto) 0 10 ^3/uL (0-0.2); Basophils % (auto) 0.1 % (0.0-2.0); Eosinophils # (auto) 0.2 10 ^3/uL (0-0.8); Eosinophils % (auto) 2.8 % (0.0-7.0); Hematocrit 40.7 % (36.0-46.0); Hemoglobin 13.3 g/dL (12.2-16.2); Lymphocytes # (auto) 1.5 10 ^3/uL (0.4-5.4); Lymphocytes % (auto) 19.4 % (10.0-50.0); Mean Corpuscular Hemoglobin 28.3 pg (28.0-32.0); Mean Corpuscular Hgb Conc. 32.6 g/dL (32.0-36.0); Mean Corpuscular Volume 86.8 fL (80.0-100.0); Monocytes # (auto) 0.6 10 ^3/uL (0-1.3); Monocytes % (auto) 7.5 % (0.0-12.0); Neutrophils # (auto) 5.4 10 ^3/uL (1.6-8.6); Neutrophils % (auto) 70.2 % (37.0-80.0); Red Blood Cells 4.69 10^6/uL (4.0-5.20); Red Cell Distribution Width 13.5 % (11.8-14.3); White Blood Cell 7.7 10^3/uL (4.4-10.8)
[2023-10-25] MEDS ORDERED: levoFLOXacin 500MG 100 ML IV SCH (10:00)
[2023-10-25] MEDS: ASPirin-EC 81 mg tab PO SCH (10:19)
[2023-10-25] MEDS: ATORVASTATIN 20 MG TAB PO SCH (10:21)
[2023-10-25] MEDS: CARVEDILOL 12.5 MG TAB PO SCH (10:21)
[2023-10-25 10:49] LABS: Magnesium 2.1 mg/dL (1.6-2.6)
[2023-10-25] MEDS: cefTRIAXone 1GM/50ML D5W 50 ML IV ONE (11:30)
[2023-10-25 13:07] LABS: Folate (Folic Acid) 24.31 ng/mL (>5.38)
[2023-10-25] MEDS ORDERED: IBU600T PO (14:05)
[2023-10-25] MEDS ORDERED: IBUP200T76 PO (14:07)
[2023-10-25] MEDS ORDERED: CYCL-839 PO (14:07)
[2023-10-25] MEDS ORDERED: IBUP200C14 PO (14:07)
[2023-10-25] MEDS: ERGOCALCIFEROL 50,000 UNIT(1.25MG) CAP PO SCH (17:54)
[2023-10-26] VITALS (7 sets, daily range): BP systolic 100–126; BP diastolic 61–77; PULSE 59–93; RESP 16–20; TEMP 36.7; O2SAT 95–100
[2023-10-26 06:07] LABS: Basophils # (auto) 0 10 ^3/uL (0-0.2); Basophils % (auto) 0.1 % (0.0-2.0); Eosinophils # (auto) 0.2 10 ^3/uL (0-0.8); Eosinophils % (auto) 3.6 % (0.0-7.0); Hematocrit 37.5 % (36.0-46.0); Hemoglobin 12.4 g/dL (12.2-16.2); Lymphocytes # (auto) 1.6 10 ^3/uL (0.4-5.4); Lymphocytes % (auto) 25.1 % (10.0-50.0); Mean Corpuscular Hemoglobin 27.9 pg (28.0-32.0); Mean Corpuscular Volume 84.4 fL (80.0-100.0); Monocytes # (auto) 0.5 10 ^3/uL (0-1.3); Monocytes % (auto) 7.9 % (0.0-12.0); Neutrophils # (auto) 3.9 10 ^3/uL (1.6-8.6); Neutrophils % (auto) 63.3 % (37.0-80.0); Nucleated Red Blood Cells % 0.1 %; Red Blood Cells 4.45 10^6/uL (4.0-5.20); Red Cell Distribution Width 13.6 % (11.8-14.3); White Blood Cell 6.2 10^3/uL (4.4-10.8)
[2023-10-26 06:37] LABS: Alanine Aminotransferase 18 U/L (7-40); Albumin 3.8 g/dL (3.2-4.8); Alkaline Phosphatase 63 U/L (46-116); Anion Gap 12 (5-15); Aspartate Aminotransferase 14 U/L (13-40); BUN/Creatinine Ratio 11.6 (10.0-20.0); Bilirubin, Total 0.5 mg/dL (0.2-1.0); Blood Urea Nitrogen 10 mg/dL (9-23); Calcium 9.2 mg/dL (8.5-10.1); Carbon Dioxide 21 mmol/L (20-30); Chloride 108 mmol/L (98-107); Glucose 86 mg/dL (74-106); Magnesium 2.1 mg/dL (1.6-2.6); Sodium 141 mmol/L (136-145)
[2023-10-26 06:38] LABS: Total Protein 6.1 g/dL (5.7-8.2)
[2023-10-26 07:07] LABS: RPR Non Reactive (Non Reactive)
[2023-10-26] MEDS: POTASSIUM EFFERVESENT TAB 25 MEQ PO ONE (08:21)
[2023-10-26] MEDS: cefTRIAXone 1GM/50ML D5W 50 ML IV SCH (09:56)
[2023-10-26] MEDS ORDERED: CEFP200T15 PO (14:03)
[2023-10-26] MEDS ORDERED: ERGO1CAP23 PO (14:03)
[2023-10-27 10:32] LABS: Anti-Nuclear Antibody Direct Negative (Negative)
[2023-10-27 13:07] LABS: Adrenocorticotropic Hormone 14.8 pg/mL (7.2-63.3)
== END 2023-10-26 17:30 | disposition home or self-care (01) | DRG 689 ==
LOC: ER 14:28 → TELE 21:57 → TELE-CENTR 10-25 03:26
PROVIDERS: ADMIT Internal Medicine Pulmonary Disease; ATTEND Anesthesiology
DX: N30.00 Acute cystitis without hematuria (principal); N17.0 Acute kidney failure with tubular necrosis; E78.5 Hyperlipidemia, unspecified; I10 Essential (primary) hypertension; E11.9 Type 2 diabetes mellitus without complications; K80.20 Calculus of gallbladder without cholecystitis without obstruction; E83.52 Hypercalcemia; N20.0 Calculus of kidney; Z53.8 Procedure and treatment not carried out for other reasons; Z88.6 Allergy status to analgesic agent; Z79.2 Long term (current) use of antibiotics; Z79.899 Other long term (current) drug therapy; Z79.82 Long term (current) use of aspirin; Z83.3 Family history of diabetes mellitus; Z87.442 Personal history of urinary calculi
CPT/HCPCS: 36415; 70450; 70551; 74176; 76775; 80053; 80061; 80320; 81001; 82024; 82306; 82533; 82607; 82746; 82962; 83036; 83690; 83735; 84443; 84484; 85025; 86038; 86592; 93005; 93306; 93886; 96361; 96365; 99291; G0378; J1815; J1956